=== PATIENT | male | born 1970 | race Caucasian/White ===

== ENCOUNTER 2025-02-19 09:40 | Emergency (ER) | payer OTHER, SELFPAY ==
[2025-02-19 09:47] VITALS: BP 144/87; PULSE 79; TEMP 37.3; O2SAT 100; BMI 25.8
--- NOTE | 2025-02-19 10:02 | ED_ITS ---
HPI - Extremity Problem General Chief complaint: Extremity Problem, Nontraumatic Stated complaint: L SHOULDER/ARM/HAND PAIN Time Seen by Provider: 02/19/25 09:58 Source: patient Mode of arrival: walk-in Limitations: no limitations History of Present Illness HPI Narrative: cc - left shoulder pain, pain and tingling left forearm and hand Symptoms developed about 3 weeks ago. He works as a associate director of sales at a [employer] and while he has a physical job, he denied any injury or overuse. He woke one morning with the symptoms, whch have waxed and waned since onset. He went to the urgent care one week ago andwas prescribed flexeril and prednisone and diagnosed with pinched nerve . He finished all meds and symptoms have not resolved. He has no PCP for follow up. Related Data Previous Rx's ?Medication ?Instructions ?Recorded methylprednisolone 4 mg tablets in 4 mg PO DAILY #21 e a 02/19/25 a dose pack (Medrol (Maldonado)) Allergies Allergy/AdvReac Type Severity Reaction Status Date / Time No Known Drug Allergies Allergy Verified 02/19/25 09:47 PFSH PFSH Social History Little interest or pleasure in doing things: not at all Feeling down, depressed, or hopeless: not at all Exam Narrative Exam Narrative: Nurses notes and vital signs reviewed and patient is not hypoxic. afebrile General: Well-appearing and in no apparent distress. Skin: Warm, dry, no pallor noted. No rash. Head: Normocephalic, atraumatic. Neck: Supple, non-tender. Eye: Pupils are equal, round and EOMI. No scleral icterus. Ears, Nose, Mouth, and Throat: Oral mucosa is moist Cardiovascular: Regular Rate and Rhythm without murmur, gallop or rub. Respiratory: No accessory muscle use or respiratory distress. Lungs are clear to auscultation, no wheezing, rales or rhonchi Back: Left scapular tenderness and left superior trapezius tenderness especially near the left shoulder joint. No midline thoracic or lumbar vertebral tenderness. No CVA tenderness Musculoskeletal: Left upper extremity with normal ROM. Proximal left forearm and posterolateral left upper arm soft tissue tenderness. No upper extremity edema/swelling. No deficits suggesting acute left rotator cuff tear or instability. No sign of dislocation. Neurological: A&O x4. No cranial nerve dysfunction observed. No truncal ataxia. Moves all extremities, including normal supervisor assembly stock strength of left hand. Sensation intact throughout left upper extremity -no anesthesia noted. Psychiatric: Cooperative and interactive. Normal mood and affect. Constitutional Vital Signs, click to edit/add: Last Vital Signs Temp 99.2 F 02/19/25 09:47 Pulse 79 02/19/25 09:47 Resp 18 02/19/25 09:47 BP 144/87 H 02/19/25 09:47 Pulse Ox 99 02/19/25 10:24 O2 Del Method Room Air 02/19/25 10:24 Course Vital Signs Vital signs: Vital Signs Temperature 99.2 F 02/19/25 09:47 Pulse Rate 79 02/19/25 09:47 Respiratory Rate 18 02/19/25 09:47 Blood Pressure 144/87 H 02/19/25 09:47 Pulse Oximetry 100 02/19/25 09:47 Oxygen Delivery Method Room Air 02/19/25 09:47 Temperature 99.2 F 02/19/25 09:47 Pulse Rate 79 02/19/25 09:47 Respiratory Rate 18 02/19/25 09:47 Blood Pressure 144/87 H 02/19/25 09:47 Pulse Oximetry 99 02/19/25 10:24 Oxygen Delivery Method Room Air 02/19/25 10:24 MDM - Extremity (Nontraumatic) MDM Narrative Medical decision making narrative: Patient presents with pain in the left trapezius, left scapula and intermittent pain and tingling down the left upper extremity. Exam is consistent with a p eripheral neuropathy. No cervical tenderness or thoracic tenderness to suggest acute spinal involvement. He experienced this on waking and it is possible that he had this arm in an unusual position while sleeping. No improvement after taking Flexeril and prednisone prescribed by the urgent care. X-rays of the left shoulder obtained - no acute bony pathology noted, per radiologist. The patient has no primary care provider. I gave him referral information for the local neurology group as this appears to be a peripheral neuropathy. I do not think orthopedics will be of any help in this instance. In the meantime I prescribed a Medrol Dosepak despite taking a few days of prednisone. Will see if this helps. Imaging Data xr shoulder: Radiologist's impression: ITS Impressions Shoulder X-Ray 02/19/25 10:02 IMPRESSION: No acute bony process. Impression dictated by: Kvng Holman Jr., D.O. 02/19/2025 10:28 AM Dictation Location: [facility] Electronically authenticated by: [id number] Y Date: 02/19/2025 10:28 Discharge Plan Discharge Chief Complaint: Extremity Problem, Nontraumatic Clinical Impression: Peripheral neuropathy Patient Disposition: Home, Self-Care Time of Disposition Decision: 10:40 Prescriptions / Home Meds: New methylprednisolone [Medrol (Maldonado)] 4 mg tablets,dose pack 4 mg PO DAILY Qty: 21 0RF Print Language: Slovenian Instructions: Peripheral Neuropathy (ED) Referrals: Ad Wahl MD [Physician, Neurology] - 1 week
[2025-02-19 10:24] VITALS: O2SAT 99
[2025-02-19 10:53] VITALS: PULSE 84
== END 2025-02-19 10:54 | disposition home or self-care (01) ==
PROVIDERS: Emergency Provider Emergency Medicine
DX: G62.9 Polyneuropathy, unspecified (principal)
CPT/HCPCS: 73030; 99283